=== PATIENT | female | born 1995 | race American Indian/Alaskan Native ===

== ENCOUNTER 2020-10-10 20:55 | Emergency (ER) | payer SELFPAY ==
[2020-10-11 00:42] LABS: Basophils % (Auto) 0.3 % (0.0-1.8); Eosinophils # (Auto) 0.1 K/mm3 (0.0-0.4); Eosinophils % (Auto) 0.6 % (0.0-4.3); Hematocrit 39.1 % (30.3-42.9); Hemoglobin 13.8 gm/dl (10.1-14.3); Lymphocytes # (Auto) 1.9 K/mm3 (1.2-5.4); Lymphocytes % (Auto) 20.3 % (13.4-35.0); Mean Corpuscular HGB Conc 35 % (30-34); Mean Corpuscular Volume 90 fl (79-97); Monocytes # (Auto) 0.6 K/mm3 (0.0-0.8); Monocytes % (Auto) 5.9 % (0.0-7.3); Platelet Count 220 K/mm3 (140-440); Red Blood Count 4.33 M/mm3 (3.65-5.03); Red Cell Distribution Width 13.4 % (13.2-15.2)
--- NOTE | 2020-10-11 01:57 | Ultrasound Report ---
ULTRASOUND OBSTETRIC INDICATION: Abdominal pain, estimated clinical age of 8 weeks 6 days. TECHNIQUE: Transabdominal. COMPARISON: None available. FINDINGS: GESTATIONAL SAC: Well-defined oval shape and intrauterine in location. YOLK SAC: No significant abnormality. EMBRYO/FETUS: No significant abnormality. - [place]ao-Rump Length = 1.5 cm = 7 weeks, 5 day(s). - Heart Rate = 172 beats per minute. ADNEXA: The ovaries are not identified due to overlying bowel gas. No significant adnexal abnormality is noted. FREE FLUID: None. ADDITIONAL FINDINGS: None. IMPRESSION: 1. Single, living intrauterine with estimated sonographic age of 7 weeks, 5 day(s). 2. No acute abnormality. Signer Name: Jordan Duke MD Signed: 10/11/2020 1:52 AM Workstation Name: [id number]
[2020-10-11 02:11] LABS: Bacteria,Urine 1+ /HPF (Negative); Bilirubin,Urine NEG (Negative); Blood,Urine NEG (Negative); Color,Urine Yellow (Yellow); Mucus,Urine 2+ /HPF
--- NOTE | 2020-10-11 03:39 | Emergency Department Report ---
ED General Adult HPI - General Chief complaint: Abdominal Pain Stated complaint: /STOMACH/UTERUS PAIN/VOMITING Time Seen by Provider: 10/11/20 03:29 Source: patient Mode of arrival: Ambulatory Limitations: No Limitations - History of Present Illness Initial comments: 25-year-old male female is emerged from complaining of a vague abdominal pain t hat radiates to the suprapubic region and through to the back of ways. She does report having some increased nausea and vomiting over the past couple weeks as well. Reports no fever, chills, sweats, no hemoptysis no hematemesis hematochezia. Radiation: non-radiation Quality: dull Consistency: constant Improves with: none Worsens with: none Associated Symptoms: denies other symptoms - Related Data Previous Rx's Medication Instructions Recorded Last Taken Type Doxylamine Succinate/Vit B6 1 each PO TID #30 tablet. 10/11/20 Unknown Rx [Diclegis Dr 10-10 mg Tablet] Allergies Allergy/AdvReac Type Severity Reaction Status Date / Time No Known Allergies Allergy Unverified 10/10/20 23:36 ED Review of Systems ROS: Stated complaint: /STOMACH/UTERUS PAIN/VOMITING Other details as noted in HPI Comment: All other systems reviewed and negative ED Past Medical Hx - Past Medical History Previous Medical History?: No - Surgical History Past Surgical History?: No - Social History Smoking Status: Never Smoker Substance Use Type: Marijuana - Medications Home Medications: Home Medications Medication Instructions Recorded Confirmed Last Taken Type Doxylamine Succinate/Vit B6 1 each PO TID #30 tablet. 10/11/20 Unknown Rx [Diclegis Dr 10-10 mg Tablet] ED Physical Exam - General Limitations: No Limitations General appearance: alert, in no apparent distress - Head Head exam: Present: atraumatic, normocephalic - Eye Eye exam: Present: normal appearance, PERRL, EOMI Pupils: Present: normal accommodation - ENT ENT exam: Present: normal exam, normal orophraynx, mucous membranes moist, normal external ear exam. Absent: TM's normal bilaterally - Neck Neck exam: Present: normal inspection, full ROM - Respiratory Respiratory exam: Present: normal lung sounds bilaterally. Absent: respiratory distress, decreased breath sounds, prolonged expiratory - Cardiovascular Cardiovascular Exam: Present: regular rate, normal rhythm. Absent: bradycardia, tachycardia, systolic murmur, diastolic murmur, rubs, gallop - GI/Abdominal GI/Abdominal exam: Present: soft, tenderness (Mild radiation to suprapubic region), normal bowel sounds - Extremities Exam Extremities exam: Present: normal inspection - Back Exam Back exam: Present: normal inspection. Absent: CVA tenderness (R), CVA tenderne ss (L), muscle spasm - Neurological Exam Neurological exam: Present: alert, oriented X3, CN II-XII intact, normal gait - Psychiatric Psychiatric exam: Present: normal affect, normal mood - Skin Skin exam: Present: warm, dry, intact, normal color. Absent: rash ED Course Vital Signs 10/10/20 23:12 Temperature 98.8 F Pulse Rate 63 Respiratory 18 Rate Blood Pressure 141/78 O2 Sat by Pulse 100 Oximetry ED Medical Decision Making - Lab Data Result diagrams: 10/10/20 23:53 - Radiology Data Radiology results: report reviewed [address] [place] [id number] Ultrasound Report Signed Patient: CINDY WINN MR#: [id number] : 1995 Acct:[id number] Age/Sex: 25 / F ADM Date: 10/10/20 Loc: ED Attending Dr: Ordering Physician: ED MD MICHAEL Date of Service: 10/10/20 Procedure(s): US OB <= 14 wk fetus add gest Accession Number(s): [id number] cc: ED MD MICHAEL ULTRASOUND OBSTETRIC INDICATION: Abdominal pain, estimated clinical age of 8 weeks 6 days. TECHNIQUE: Transabdominal. COMPARISON: None available. FINDINGS: GESTATIONAL SAC: Well-defined oval shape and intrauterine in location. YOLK SAC: No significant abnormality. EMBRYO/FETUS: No significant abnormality. - [place]o-Rump Length = 1.5 cm = 7 weeks, 5 day(s). - Heart Rate = 172 beats per minute. ADNEXA: The ovaries are not identified due to overlying bowel gas. No sign ificant adnexal abnormality is noted. FREE FLUID: None. ADDITIONAL FINDINGS: None. IMPRESSION: 1. Single, living intrauterine with estimated sonographic age of 7 weeks, 5 day(s). 2. No acute abnormality. Signer Name: Jordan Duke MD Signed: 10/11/2020 1:52 AM Workstation Name: [email or web address] Transcribed By: STORM Dictated By: Jordan Duke MD Electronically Authenticated By: Jordan Duke MD Signed Date/Time: 10/11/20151 DD/ 0 TD/TT: Print Cancel - Medical Decision Making This patient presents with vaginal bleeding in the first trimester, differential diagnosis includes ectopic , IUP, month threatened/inevitable , along with a completed . Patient is HDS and without a history of coagulopathy or infectious symptoms. The ultrasound does reveal an IUP at 7 weeks with an elevated hCG quant Based on exam history and ED work-up patient presentation is not consistent with an ectopic , life-threatening coagulopathy, trauma, serious bacterial infection, central process or other emergency Critical care attestation.: If time is entered above; I have spent that time in minutes in the direct care of this critically ill patient, excluding procedure time. ED Disposition Clinical Impression: Hyperemesis gravidarum, Abdominal pain in Disposition: DC-01 TO HOME OR SELFCARE Is pt being admited?: No Does the pt Need Aspirin: No Condition: Stable Instructions: Hyperemesis Gravidarum, Morning Sickness, Eknu-pt-Asps, Abdominal Pain (ED) Prescriptions: Doxylamine Succinate/Vit B6 [Suzie Mcdaniel 10-10 mg Tablet] 1 each PO TID #30 tablet. Referrals: PRIMARY CARE, [Primary Care Provider] - 3-5 Days
[2020-10-11 04:32] VITALS: BP 118/78
== END 2020-10-11 04:33 | disposition home or self-care (01) ==
LOC: ED 20:55
DX: O21.0 Mild hyperemesis gravidarum (principal); O26.891 Other specified pregnancy related conditions, first trimester; R10.9 Unspecified abdominal pain; Z79.899 Other long term (current) drug therapy; Z3A.01 Less than 8 weeks gestation of pregnancy
CPT/HCPCS: 36415; 76801; 76802; 81001; 84702; 85025; 86900; 86901